=== PATIENT | female | born 1950 | race Caucasian/White ===

== ENCOUNTER 2016-08-29 22:43 | Emergency (ER) | payer MEDICARE, OTHER ==
[~2016-08-29 22:43] MED LIST: FISH OIL 1,2001 CAP PO; KEFLEX PO; MULTIVITAMIN1 UDCAP PO; ONE DAILY FOR1 EAC3 PO; PRAVACHOL PO; PREDNISONE PO
== END 2016-08-30 00:12 | disposition home or self-care (01) ==
LOC: SED 22:43
DX: S50.862A Insect bite (nonvenomous) of left forearm, initial encounter (principal); L03.114 Cellulitis of left upper limb; F17.210 Nicotine dependence, cigarettes, uncomplicated; R03.0 Elevated blood-pressure reading, without diagnosis of hypertension; E78.5 Hyperlipidemia, unspecified; Z90.710 Acquired absence of both cervix and uterus; W57.XXXA Bitten or stung by nonvenomous insect and other nonvenomous arthropods, initial encounter; Y92.9 Unspecified place or not applicable
CPT/HCPCS: 99282

== ENCOUNTER 2016-10-03 08:06 | Emergency (ER) | payer MEDICARE, OTHER ==
--- NOTE | ~2016-10-03 | CR127 ---
[facility] A Service of [facility] & [facility] RADIOLOGY TEXT RESULTS PATIENT: JENNIFER DE JESUS LOCATION: SED : 50 UNIT #: [id number] AGE: [address]: Suzanna Ball MD SEX: F ORDER DR: [id number] [address] [address] [id number] MR#: [id number] Acc #: [id number] NAME: JENNIFER DE JESUS : 1950 SEX: F STUDY DATE/TIME: 10/03/2016 8:20 UNIT: SED ROOM: STUDY DESCRIPTION: CR Foot Complete Min 3 View Rt Attending Physician: Suzanna Ball M.D. Ordering Physician: Suzanna Ball M.D. Primary Care Physician: Marisol Hooper A.P.R.N. MEDICAL IMAGING REPORT This report is preliminary unless electronic signature is present. EXAM Right foot, 10/03/2016 HISTORY 66-year-old woman hit foot on stairs in swimming pool yesterday. Pain right foot. FINDINGS Three views of the right foot demonstrate a hallux valgus deformity. Cortex is intact throughout. There is some generalized demineralization. Small joints are preserved. Plantar calcaneal spur incidentally noted. IMPRESSION No visualized fracture. Hallux valgus deformity. Incidental plantar calcaneal spur. Dictated by... Sen Israel M.D. THIS IS AN ELECTRONICALLY VERIFIED REPORT Sen Israel M.D. at 10/03/2016 12:22 PM Yolette TD: 10/03/2016 11:16 JOB #: [id number] MEDICAL IMAGING REPORT Page 1 of 1
== END 2016-10-03 09:01 | disposition home or self-care (01) ==
LOC: SED 08:06
DX: S90.31XA Contusion of right foot, initial encounter (principal); E78.5 Hyperlipidemia, unspecified; F17.210 Nicotine dependence, cigarettes, uncomplicated; Z79.899 Other long term (current) drug therapy; Z88.1 Allergy status to other antibiotic agents; W22.8XXA Striking against or struck by other objects, initial encounter; Y92.095 Swimming-pool of other non-institutional residence as the place of occurrence of the external cause
CPT/HCPCS: 73630; 99283